=== PATIENT | male | born 1980 | race Caucasian/White ===

== ENCOUNTER 2023-03-05 22:58 | Emergency (ER) | payer SELFPAY ==
[~2023-03-05] VITALS: Ht 180.3 cm; Wt 108.9 kg
[2023-03-05 23:14] VITALS: TEMP 98
[2023-03-05 23:51] VITALS: O2SAT 98
[2023-03-05] MEDS ORDERED: AMLO10TA4 PO (23:53)
[2023-03-05] MEDS ORDERED: AMLODIPINE BESYLATE 10 MG TABLET ONE (23:58)
[2023-03-06] MEDS ORDERED: AMLODIPINE BESYLATE 5 MG TABLET PO ONE
[2023-03-06 00:04] VITALS: BP 172/107
== END 2023-03-06 00:51 | disposition home or self-care (01) ==
LOC: ER 23:04
DX: S30.0XXA Contusion of lower back and pelvis, initial encounter (principal); R03.0 Elevated blood-pressure reading, without diagnosis of hypertension; F17.200 Nicotine dependence, unspecified, uncomplicated; Z60.2 Problems related to living alone; W22.8XXA Striking against or struck by other objects, initial encounter; Y93.89 Activity, other specified; Y92.89 Other specified places as the place of occurrence of the external cause; Y99.8 Other external cause status